=== PATIENT | female | born 1950 | race Caucasian/White ===

== ENCOUNTER 2021-01-05 11:11 | Observation (INO) | payer OTHER, MEDICARE ==
[2021-01-05 11:38] LABS: Absolute Lymphocytes (CBC) 1.1 K/uL (0.7-4.9); Basophils % 0.5 % (0-1.3); Hematocrit 44.4 % (36.0-45.0); Lymphocytes % 14.7 % (15.3-44.8); MPV 9.2 fL (7.6-11.3); RBC Red Blood Cell Count 5.13 M/uL (3.86-4.86)
[2021-01-05] MEDS ORDERED: NA CHLORIDE 0.9% 500 ML ONE (11:44)
[2021-01-05] MEDS ORDERED: METOPROLOL TARTRATE 5 MG/5 ML INJ IV ONE (11:44)
[2021-01-05] MEDS ORDERED: METOPROLOL TAR 50 MG TAB ONE (11:44)
[2021-01-05 11:45] LABS: Protime INR 0.88
[2021-01-05] MEDS ORDERED: NA CHLORIDE 0.9% 1,000 ML ONE (11:45)
[2021-01-05] MEDS ORDERED: FAMOTIDINE 20 MG/2 ML VIAL IV ONE (11:45)
--- NOTE | 2021-01-05 12:04 | RAD REPORT ---
EXAM DESCRIPTION: CT - Head Brain Wo Cont - 01/05/2021 11:51 am CLINICAL HISTORY: Dizziness COMPARISON: None TECHNIQUE: Computed axial tomography of the head was obtained. IV contrast was not requested. All CT scans are performed using dose optimization technique as appropriate and may include automated exposure control or mA/KV adjustment according to patient size. FINDINGS: An intracranial bleed is not seen . The ventricles are normal in caliber. No extra-axial fluid collection is noted. Small low-density area right internal capsule. Fluid within the sinuses/ mastoids is not seen. IMPRESSION: Small low-density area right internal capsule. It is uncertain if it is real. It may be a lacunar infarct of indeterminate age. If clinically indicated further evaluation with MRI could be obtained
[2021-01-05 12:05] LABS: ALT/SGPT 22 U/L (12-78); AST/SGOT 14 U/L (15-37); Albumin 3.4 g/dL (3.4-5.0); Alkaline Phosphatase 136 U/L (45-117); BUN Blood Urea Nitrogen 13 mg/dL (7-18); Bicarbonate 23 mmol/L (21-32); Bilirubin Direct < 0.1 mg/dL (0-0.2); Bilirubin Total 0.4 mg/dL (0.2-1.0); Glucose Level 378 mg/dL (74-106); Magnesium 1.8 mg/dL (1.8-2.4); NT PRO-BNP 400 pg/mL (<125); Potassium 4.5 mmol/L (3.5-5.1); Protein, Total 7.1 g/dL (6.4-8.2); Sodium Level 135 mmol/L (136-145); Troponin (Emerg Dept Use Only) < 0.02 ng/mL (0.0-0.045)
--- NOTE | 2021-01-05 12:42 | RAD REPORT ---
EXAM DESCRIPTION: [place] Single View01/05/2021 12:11 pm CLINICAL HISTORY: Chest pain COMPARISON: none FINDINGS: The lungs appear clear of acute infiltrate. The heart is normal size. Aorta is tortuous/e ctatic IMPRESSION: No acute abnormalities displayed
--- NOTE | 2021-01-05 12:44 | EDPHYS ---
Physician Documentation [facility] Name: Keesha Shah Age: 70 yrs Sex: Female : 1950 Arrival Date: 01/05/2021 Time: 11:12 Bed 8 Private MD: POLINA Physician Cheikh Gu HPI: 01/05 12:36 This 70 yrs old Female presents to ER via EMS with complaints of fat heart david rate, webster and numbness to face and jaw. 12:36 The patient complains of pain to the top of head and forehead. The patient describes david the headache as constant. Onset: The symptoms/episode began/occurred this morning. The patient presents with a history of irregular heart beat, heart racing. Context: The symptoms occur with light activity. Onset: The symptoms/episode began/occurred just prior to arrival, this morning. Duration: The patient or guardian reports a single episode, that is still ongoing. Modifying factors: The symptoms are aggravated by nothing. The symptoms are alleviated by nothing. Historical: - Allergies: 11:24 No Known Allergies; ca1 - Home Meds: 11:24 Aspirin Oral [Active]; Aleve Oral [Active]; vitamins [Active]; ca1 - PMHx: 11:24 Diabetes - NIDDM; Hypertension; ca1 - PSHx: 11:24 elbow sx; ca1 - Immunization history:: Adult Immunizations not up to date, Client reports having NOT received the Covid vaccine. Pneumococcal vaccine is not up to date, Flu vaccine is not up to date. - Social history:: Smoking status: Patient denies any tobacco usage or history of. - Family history:: not pertinent. ROS: 12:36 Constitutional: Negative for fever, chills, and weight loss, Eyes: Negative for injury, david pain, redness, and discharge, ENT: Negative for injury, pain, and discharge, Neck: Negative for injury, pain, and swelling, Respiratory: Negative for shortness of breath, cough, wheezing, and pleuritic chest pain, Abdomen/GI: Negative for abdominal pain, nausea, vomiting, diarrhea, and constipation, Back: Negative for injury and pain, : Negative for injury, bleeding, discharge, and swelling, MS/Extremity: Negative for injury and deformity, Skin: Negative for injury, rash, and discoloration, Neuro: Negative for headache, weakness, numbness, tingling, and seizure, Psych: Negative for depression, anxiety, suicide ideation, homicidal ideation, and hallucinations, Allergy/Immunology: Negative for hives, rash, and allergies, Endocrine: Negative for neck swelling, polydipsia, polyuria, polyphagia, and marked weight changes, Hematologic/Lymphatic: Negative for swollen nodes, abnormal bleeding, and unusual bruising. 12:36 Cardiovascular: Positive for chest pain, palpitations. Exam: 12:36 Constitutional: This is a well developed, well nourished patient who is awake, alert, david and in no acute distress. Head/Face: Normocephalic, atraumatic. Eyes: Pupils equal round and reactive to light, extra-ocular motions intact. Lids and lashes normal. Conjunctiva and sclera are non-icteric and not injected. Cornea within normal limits. Periorbital areas with no swelling, redness, or edema. ENT: Nares patent. No nasal discharge, no septal abnormalities noted. Tympanic membranes are normal and external auditory canals are clear. Oropharynx with no redness, swelling, or masses, exudates, or evidence of obstruction, uvula midline. Mucous membranes moist. Neck: Trachea midline, no thyromegaly or masses palpated, and no cervical lymphadenopathy. Supple, full range of motion without nuchal rigidity, or vertebral point tenderness. No Meningismus. Chest/axilla: Normal chest wall appearance and motion. Nontender with no deformity. No lesions are appreciated. Respiratory: Lungs have equal breath sounds bilaterally, clear to auscultation and percussion. No rales, rhonchi or wheezes noted. No increased work of breathing, no retractions or nasal flaring. Abdomen/GI: Soft, non-tender, with normal bowel sounds. No distension or tympany. No guarding or rebound. No evidence of tenderness throughout. Back: No spinal tenderness. No costovertebral tenderness. Full range of motion. Female : Normal external genitalia. Skin: Warm, dry with normal turgor. Normal color with no rashes, no lesions, and no evidence of cellulitis. MS/ Extremity: Pulses equal, no cyanosis. Neurovascular intact. Full, normal range of motion. Neuro: Awake and alert, GCS 15, oriented to person, place, time, and situation. Cranial nerves II-XII grossly intact. Motor strength 5/5 in all extremities. Sensory grossly intact. Cerebellar exam normal. Normal gait. Psych: Awake, alert, with orientation to person, place and time. Behavior, mood, and affect are within normal limits. 12:36 Cardiovascular: Rate: tachycardic, actual rate is 150 bpm, Rhythm: irregularly irregular, Pulses: Pulses are 4+ in bilateral radial, brachial, femoral, popliteal, posterior tibial and and dorsalis pedis arteries.. Heart sounds: normal, Edema: is not appreciated, JVD: is not appreciated. 12:36 ECG was reviewed by the Attending Physician. 12:40 ECG was reviewed by the Attending Physician. [facility] Vital Signs: 11:22 BP 143 / 103; Pulse 165; Resp 18; Temp 98.2(O); Pulse Ox 98% on R/A; ca1 11:48 BP 100 / 65; Pulse 143; Resp 18 S; Pulse Ox 99% on R/A; ca1 11:56 Weight 85.73 kg (R); Height 5 ft. 4 in. (162.56 cm) (R); ca1 12:05 BP 101 / 68; Pulse 62; Resp 20 S; Pulse Ox 98% on R/A; ca1 12:26 BP 105 / 62; Pulse 61; Resp 22; Pulse Ox 98% on R/A; ca1 13:00 BP 120 / 65; Pulse 60; Resp 20 S; Pulse Ox 98% on R/A; ca1 14:04 BP 106 / 55; Pulse 58; Resp 18 S; Pulse Ox 98% on R/A; ca1 15:00 BP 100 / 60; Pulse 65; Resp 18 S; Pulse Ox 100% on R/A; ca1 16:00 BP 124 / 63; Pulse 66; Resp 18 S; Pulse Ox 99% on R/A; ca1 11:56 Body Mass Index 32.44 (85.73 kg, 162.56 cm) ca1 [place] Coma Score: 12:40 Eye Response: spontaneous(4). Verbal Response: oriented(5). Motor Response: obeys david commands(6). Total: 15. MDM: 11:26 Patient medically screened. [facility] 12:40 Differential diagnosis: cerebral vascular accident, arrythmia, dehydration, DKA, david hyperthyroidism, migraine, tension headache, vasomotor headache. Differential diagnosis: cardiac arrhythmia, CVA, generalized weakness, idiopathic dizziness, near-syncope, TIA. Data reviewed: vital signs, nurses notes, lab test result(s), EKG, radiologic studies, CT scan, plain films. Data interpreted: residential monitor: rate is 150 beats/min, rhythm is atrial fibrillation, Pulse oximetry: on room air is 98 %. Test interpretation: by ED physician or midlevel provider: ECG, plain radiologic studies. Counseling: I had a detailed discussion with the patient and/or guardian regarding: the historical points, exam findings, and any diagnostic results supporting the discharge/admit diagnosis, lab results, radiology results, the need for further work-up and treatment in the hospital. 01/05 11:25 Order name: Basic Metabolic Panel [facility] 01/05 11:25 Order name: CBC with Diff [facility] 01/05 11:25 Order name: LFT's [facility] 01/05 11:25 Order name: Magnesium [facility] 01/05 11:25 Order name: NT PRO-BNP [facility] 01/05 11:25 Order name: PT-INR; Complete Time: 12:26 [facility] 01/05 11:25 Order name: Troponin (emerg Dept Use Only) [facility] 01/05 11:25 Order name: TSH; Complete Time: 12:26 [facility] 01/05 11:25 Order name: Urine Culture [facility] 01/05 11:25 Order name: COVID-19 : Document "Date of Symptom Onset" if Symptomatic. [facility] 01/05 11:25 Order name: Basic Metabolic Panel; Complete Time: 12:26 [facility] 01/05 11:25 Order name: CBC with Automated Diff; Complete Time: 12:26 [facility] 01/05 11:26 Order name: Liver (Hepatic) Function; Complete Time: 12:26 [facility] 01/05 11:26 Order name: Magnesium; Complete Time: 12:26 [facility] 01/05 11:25 Order name: XRAY Chest (1 view); Complete Time: 12:44 [facility] 01/05 11:25 Order name: CT Head Brain wo Cont; Complete Time: 12:26 [facility] 01/05 11:26 Order name: NT PRO-BNP; Complete Time: 12:26 [facility] 01/05 11:26 Order name: Troponin (Emerg Dept Use Only); Complete Time: 12:26 [facility] 01/05 11:35 Order name: Glucose, Ancillary Testing; Complete Time: 12: [facility] 01/05 12:17 Order name: Echo with Doppler EDMS 01/05 12:17 Order name: Thyroid Stimulating Hormone [facility] 01/05 12:26 Order name: Lipid Profile [facility] 01/05 12:26 Order name: Lipid Profile; Complete Time: 15:37 [facility] 01/05 14:13 Order name: SARS-COV-2 RT PCR; Complete Time: 15:37 [facility] 01/05 14:36 Order name: Creatine Phosphokinase; Complete Time: 15:37 [facility] 01/05 14:36 Order name: CKMB Creatine Kinase MB; Complete Time: 15:37 [facility] 01/05 14:36 Order name: Troponin I; Complete Time: 15:37 [facility] 01/05 16:08 Order name: T4 Free [facility] 01/05 11:25 Order name: EKG; Complete Time: 11:26 [facility] 01/05 11:25 Order name: Cardiac monitoring; Complete Time: 12:03 [facility] 01/05 11:25 Order name: EKG - Nurse/Tech; Complete Time: 12:03 [facility] 01/05 11:25 Order name: IV Saline Lock; Complete Time: 12:03 [facility] 01/05 11:25 Order name: Labs collected and sent; Complete Time: 12:03 [facility] 01/05 11:25 Order name: O2 Per Protocol; Complete Time: 12:04 [facility] 01/05 11:25 Order name: O2 Sat Monitoring; Complete Time: 12:04 [facility] 01/05 14:27 Order name: Diet Heart Healthy; Complete Time: 14:28 ca1 EC:36 Rate is 155 beats/min. Rhythm is irregularly irregular. QRS [place] is Normal. GA interval david is normal. QRS interval is normal. QT interval is normal. No Q waves. T waves are Normal. No ST changes noted. Clinical impression: Atrial Fibrillation. Interpreted by me. Reviewed by me. 12:40 Rate is 61 beats/min. Rhythm is regular. QRS [place] is Normal. GA interval is normal. QRS david interval is normal. QT interval is normal. No Q waves. T waves are Normal. No ST changes noted. Clinical impression: Normal ECG and No evidence of ischemia. Interpreted by me. Reviewed by me. Administered Medications: 11:25 Drug: NS 0.9% 500 ml Route: IV; Rate: bolus; Site: right antecubital; ca1 12:30 Follow up: Response: No adverse reaction; IV Status: Completed infusion; IV Intake: ca1 500ml 11:27 Drug: Lopressor (metoprolol TARTRATE) 50 mg Route: PO; ca1 13:23 Follow up: Response: No adverse reaction; Cardiac rhythm changed ca1 11:30 Drug: Lopressor (metoprolol) 5 mg Route: IVP; Site: right antecubital; ca1 11:35 Follow up: Response: No adverse reaction; Cardiac rhythm changed; Cardiac rhythm is ca1 unchanged 11:33 Drug: Pepcid (famotidine) 20 mg Route: IVP; Site: right antecubital; ca1 12:30 Follow up: Response: No adverse reaction ca1 11:35 Drug: Lopressor (metoprolol) 5 mg Route: IVP; Site: right antecubital; ca1 11:45 Follow up: Response: No adverse reaction; Cardiac rhythm changed ca1 12:29 Drug: NS 0.9% 1000 ml Route: IV; Rate: 125 ml/hr; Site: right antecubital; ca1 13:23 Follow up: Response: No adverse reaction; IV Status: Infusion continued upon admission ca1 12:30 Not Given (Hemodynamic Parameters; Cardiac rhythm changed to NSR): Lopressor ca1 (metoprolol) 5 mg IVP once; Hold for SBP <100 or HR <60. 12:30 Drug: foLIC Acid 1 mg Route: IVPB; Site: right antecubital; ca1 13:25 Follow up: Response: No adverse reaction; IV Status: Completed infusion ca1 12:33 Drug: LanTUS (insulin glargine) 30 units Route: Sub-Q; Site: right lower abdomen; ca1 16:08 Follow up: Response: No adverse reaction; Blood sugar is lowered ca1 12:35 Drug: Insulin Regular Human 6 units {Co-Signature: [email or web address] (William Diaz RN).} Route: IVP; ca1 Site: right antecubital; 16:09 Follow up: Response: No adverse reaction; Blood sugar is lowered ca1 12:40 Drug: Aspirin 162 mg Route: PO; ca1 13:24 Follow up: Response: No adverse reaction ca1 12:53 Drug: Lovenox (enoxaparin) 1 mg/kg Route: Sub-Q; Site: left lower abdomen; ca1 13:24 Follow up: Response: No adverse reaction ca1 Disposition: 01/05/21 12:44 Hospitalization ordered by Prince Jhony for Observation. Preliminary diagnosis are Atrial fibrillation and flutter - with RVR, Headache, Type 2 diabetes mellitus - UNCONTROLLED. - Bed requested for Telemetry/MedSurg (observation). - Status is Observation. ca1 - Condition is Stable. - Problem is new. - Symptoms have improved. Signatures: Dispatcher [employer] EDMS Erna Hannah RN RN kl Anderson, Corey, MD MD cha Attema, Lee, HEARING AID DISPENSER-C HEARING AID DISPENSER-Cla1 Arianna Garcia RN RN ca1 William Diaz RN [email or web address] Corrections: (The following items were deleted from the chart) 15:47 12:44 Hospitalization Ordered by Prince Jhony DURÁN for Observation. Preliminary kl diagnosis is Atrial fibrillation and flutter - with RVR; Headache; Type 2 diabetes mellitus - UNCONTROLLED. Bed requested for Telemetry/MedSurg (observation). Status is Observation. Condition is Stable. Problem is new. Symptoms have improved. [facility] 16:15 15:47 01/05/2021 12:44 Hospitalization Ordered by Prince Jhony DUÁRN for Observation. ca1 Preliminary diagnosis is Atrial fibrillation and flutter - with RVR; Headache; Type 2 diabetes mellitus - UNCONTROLLED. Bed requested for Telemetry/MedSurg (observation). Status is Observation. Condition is Stable. Problem is new. Symptoms have improved. kl
--- NOTE | 2021-01-05 12:44 | ER ---
Nurse's Notes [facility] Name: Keesha Shah Age: 70 yrs Sex: Female : 1950 Arrival Date: 01/05/2021 Time: 11:12 Bed 8 Private MD: Diagnosis: Atrial fibrillation and flutter-with RVR;Headache;Type 2 diabetes mellitus-UNCONTROLLED Presentation: 01/05 11:22 Coronavirus screen: Client denies travel out of the [place] in the last 14 days. At this ca1 time, the client does not indicate any symptoms associated with coronavirus-19. Ebola Screen: Patient negative for fever greater than or equal to 101.5 degrees Fahrenheit, and additional compatible Ebola Virus Disease symptoms Patient denies exposure to infectious person. Patient denies travel to an Ebola-affected area in the 21 days before illness onset. No symptoms or risks identified at this time. Initial Sepsis Screen: Does the patient meet any 2 criteria? No. Patient's initial sepsis screen is negative. Does the patient have a suspected source of infection? No. Patient's initial sepsis screen is negative. Risk Assessment: Do you want to hurt yourself or someone else? Patient reports no desire to harm self or others. Onset of symptoms was January 05, 2021 at 08:00. 11:22 Acuity: NICK 2 ca1 11:22 Method Of Arrival: EMS: [facility] ca1 11:22 Chief complaint: Chief complaint: EMS states: 0800 today, felt started racing. C/O ca1 numbness of arms and headache. Reports N/V. Reports previous episode of heart racing years ago but undiagnosed. Upon arrival on scene, Pt HR at 160, A-fib RVR. HR increased to 190 for 10 minutes. Diltiazem 10MG given IV. HR at 150 - 160s at this time. IV start G20 RAC. Takes Aspirin, Aleve, Vitamins. Denies chest pain at this time. Triage Assessment: 11:22 General: Appears in no apparent distress. comfortable, Behavior is calm, cooperative, ca1 appropriate for age. Pain: Complains of pain in scalp. Pain:. EENT: No signs and/or symptoms were reported regarding the EENT system. Neuro: Level of Consciousness is awake, alert, obeys commands, Oriented to person, place, time, situation. Cardiovascular: Heart tones S1 S2 present Capillary refill < 3 seconds Patient's skin is warm and dry. Rhythm is atrial fibrillation with rapid ventricular response. Respiratory: Airway is patent Respiratory effort is even, unlabored, Respiratory pattern is regular, symmetrical, Breath sounds are clear bilaterally. GI: Abdomen is round non-distended, Bowel sounds present X 4 quads. Reports nausea, vomiting. : No signs and/or symptoms were reported regarding the genitourinary system. : No signs and/or symptoms were reported regarding the genitourinary system. Derm: Skin is intact, is healthy with good turgor, Skin is pink, warm \T\ dry. Musculoskeletal: Circulation, motion, and sensation intact. Capillary refill < 3 seconds. Historical: - Allergies: 11:24 No Known Allergies; ca1 - Home Meds: 11:24 Aspirin Oral [Active]; Aleve Oral [Active]; vitamins [Active]; ca1 - PMHx: 11:24 Diabetes - NIDDM; Hypertension; ca1 - PSHx: 11:24 elbow sx; ca1 - Immunization history:: Adult Immunizations not up to date, Client reports having NOT received the Covid vaccine. Pneumococcal vaccine is not up to date, Flu vaccine is not up to date. - Social history:: Smoking status: Patient denies any tobacco usage or history of. - Family history:: not pertinent. Screenin:48 Abuse screen: Denies threats or abuse. Denies injuries from another. Nutritional ca1 screening: No deficits noted. Tuberculosis screening: No symptoms or risk factors identified. Fall Risk IV access (20 points). Assessment: 11:51 Reassessment: see triage notes. ca1 11:51 Reassessment: Pt to CT. ca1 12:05 Reassessment: Patient appears in no apparent distress at this time. Patient is alert, ca1 oriented x 3, equal unlabored respirations, skin warm/dry/pink. Cardiovascular: Rhythm is sinus rhythm. 12:26 Reassessment: Patient appears in no apparent distress at this time. Patient and/or ca1 family updated on plan of care and expected duration. Pain level reassessed. Patient is alert, oriented x 3, equal unlabored respirations, skin warm/dry/pink. 13:22 Reassessment: Patient appears in no apparent distress at this time. Patient and/or ca1 family updated on plan of care and expected duration. Pain level reassessed. Patient is alert, oriented x 3, equal unlabored respirations, skin warm/dry/pink. 14:04 Reassessment: Patient appears in no apparent distress at this time. Patient and/or ca1 family updated on plan of care and expected duration. Pain level reassessed. Patient is alert, oriented x 3, equal unlabored respirations, skin warm/dry/pink. 14:50 Reassessment: Dr. Reyes at bedside. 7 15:00 Reassessment: Patient appears in no apparent distress at this time. Patient and/or ca1 family updated on plan of care and expected duration. Pain level reassessed. Patient is alert, oriented x 3, equal unlabored respirations, skin warm/dry/pink. 16:00 Reassessment: Patient appears in no apparent distress at this time. Patient and/or ca1 family updated on plan of care and expected duration. Pain level reassessed. Patient is alert, oriented x 3, equal unlabored respirations, skin warm/dry/pink. Vital Signs: 11:22 BP 143 / 103; Pulse 165; Resp 18; Temp 98.2(O); Pulse Ox 98% on R/A; ca1 11:48 BP 100 / 65; Pulse 143; Resp 18 S; Pulse Ox 99% on R/A; ca1 11:56 Weight 85.73 kg (R); Height 5 ft. 4 in. (162.56 cm) (R); ca1 12:05 BP 101 / 68; Pulse 62; Resp 20 S; Pulse Ox 98% on R/A; ca1 12:26 BP 105 / 62; Pulse 61; Resp 22; Pulse Ox 98% on R/A; ca1 13:00 BP 120 / 65; Pulse 60; Resp 20 S; Pulse Ox 98% on R/A; ca1 14:04 BP 106 / 55; Pulse 58; Resp 18 S; Pulse Ox 98% on R/A; ca1 15:00 BP 100 / 60; Pulse 65; Resp 18 S; Pulse Ox 100% on R/A; ca1 16:00 BP 124 / 63; Pulse 66; Resp 18 S; Pulse Ox 99% on R/A; ca1 11:56 Body Mass Index 32.44 (85.73 kg, 162.56 cm) ca1 Satya Coma Score: 12:40 Eye Response: spontaneous(4). Verbal Response: oriented(5). Motor Response: obeys david commands(6). Total: 15. ED Course: 11:12 Patient arrived in ED. aa5 11:19 Cheikh Gu MD is Attending Physician. david 11:20 Arianna Garcia, RN is Primary Nurse. ca1 11:22 Triage completed. ca1 11:24 Arm band placed on. EKG completed in triage. Results shown to MD. ca1 11:25 Initial lab(s) drawn, by me, sent to lab. aa5 11:25 Maintain EMS IV. Dressing intact. Good blood return noted. Site clean \T\ dry. Gauge \T\ aa 5 site: 20 G to R AC. 11:48 Patient has correct armband on for positive identification. Placed in gown. Bed in low ca1 position. Call light in reach. Side rails up X2. space planner on. Pulse ox on. NIBP on. Warm blanket given. 11:56 CT Head Brain wo Cont In Process Unspecified. EDMS 12:11 XRAY Chest (1 view) In Process Unspecified. EDMS 12:42 Prince Booker MD is Hospitalizing Provider. [facility] 14:08 No provider procedures requiring assistance completed. Patient admitted, IV remains in ca1 place. Administered Medications: 11:25 Drug: NS 0.9% 500 ml Route: IV; Rate: bolus; Site: right antecubital; ca1 12:30 Follow up: Response: No adverse reaction; IV Status: Completed infusion; IV Intake: ca1 500ml 11:27 Drug: Lopressor (metoprolol TARTRATE) 50 mg Route: PO; ca1 13:23 Follow up: Response: No adverse reaction; Cardiac rhythm changed ca1 11:30 Drug: Lopressor (metoprolol) 5 mg Route: IVP; Site: right antecubital; ca1 11:35 Follow up: Response: No adverse reaction; Cardiac rhythm changed; Cardiac rhythm is ca1 unchanged 11:33 Drug: Pepcid (famotidine) 20 mg Route: IVP; Site: right antecubital; ca1 12:30 Follow up: Response: No adverse reaction ca1 11:35 Drug: Lopressor (metoprolol) 5 mg Route: IVP; Site: right antecubital; ca1 11:45 Follow up: Response: No adverse reaction; Cardiac rhythm changed ca1 12:29 Drug: NS 0.9% 1000 ml Route: IV; Rate: 125 ml/hr; Site: right antecubital; ca1 13:23 Follow up: Response: No adverse reaction; IV Status: Infusion continued upon admission ca1 12:30 Not Given (Hemodynamic Parameters; Cardiac rhythm changed to NSR): Lopressor ca1 (metoprolol) 5 mg IVP once; Hold for SBP <100 or HR <60. 12:30 Drug: foLIC Acid 1 mg Route: IVPB; Site: right antecubital; ca1 13:25 Follow up: Response: No adverse reaction; IV Status: Completed infusion ca1 12:33 Drug: LanTUS (insulin glargine) 30 units Route: Sub-Q; Site: right lower abdomen; ca1 16:08 Follow up: Response: No adverse reaction; Blood sugar is lowered ca1 12:35 Drug: Insulin Regular Human 6 units {Co-Signature: [email or web address] (William Diaz RN).} Route: IVP; ca1 Site: right antecubital; 16:09 Follow up: Response: No adverse reaction; Blood sugar is lowered ca1 12:40 Drug: Aspirin 162 mg Route: PO; ca1 13:24 Follow up: Response: No adverse reaction ca1 12:53 Drug: Lovenox (enoxaparin) 1 mg/kg Route: Sub-Q; Site: left lower abdomen; ca1 13:24 Follow up: Response: No adverse reaction ca1 Intake: 12:30 IV: 500ml; Total: 500ml. ca1 Outcome: 12:44 Decision to Hospitalize by Provider. [facility] 16:06 Admitted to Med/surg accompanied by tech, via wheelchair, room 208, with chart, Report ca1 called to ILIANA Stahl 16:06 Condition: stable 16:06 Instructed on the need for admit. 16:15 Patient left the ED. ca1 Signatures: Dispatcher [employer] Cheikh Baca MD MD cha Calderon, Audri RN RN William Cuellar RN RN [email or web address] Arianna Garcia RN RN ca1 William Diaz RN [email or web address]
[2021-01-05] MEDS ORDERED: INSULIN GLARGINE 100 UNITS/ML SQ ONE (12:52)
[2021-01-05] MEDS ORDERED: ASPIRIN 81 MG CHEWABLE TABLET ONE (12:52)
[2021-01-05] MEDS ORDERED: INSULIN -REGULAR HUMAN 50 UNIT/0.5 ML ML ONE (12:53)
[2021-01-05] MEDS ORDERED: ENOXAPARIN 80 MG/0.8 ML SQ ONE (12:53)
[2021-01-05] MEDS ORDERED: FOLIC ACID 5 MG/ML VIAL ONE (12:54)
[2021-01-05] MEDS ORDERED: ACETAMINOPHEN 500 MG TAB PO PRN (13:24)
[2021-01-05] MEDS ORDERED: TRAMADOL HCL 50 MG TAB PO PRN (13:29)
[2021-01-05] MEDS: NA CHLORIDE 0.9% 1,000 ML IV SCH (14:00)
--- NOTE | 2021-01-05 14:05 | P.HP ---
Patient History Date of Service: 01/05/21 Reason for admission: suspected CVA/TIA. History of Present Illness: 70 y o female pt with hx of DM type 2, Hypertension, Hyperlipidemia, who came to the Ed after feeling unwell. she had symptoms of tingling around the mouth and bilateral jaw. no chest pain or sob reported. no feeling of weakness in any limbs. she also did not have double vision or inability to speak or recognize speech. she had a CT of the head done and a small area of indeterminate age lesion was found in the right internal capsule. she also was found to ave rapid A fib which became regular rhythm after a clifton of rate control meds. She was admitted for inpt care after discussing with cardiology. Prior to this episode, she denied any issues with prior chest pain on exertion, sob, fever, chills, rigor, cough, leg swelling. Allergies No Known Allergies Allergy (Unverified 03/31/17 21:38) Home Medications: Aspirin [Ecotrin 81 MG] 81 mg PO DAILY 04/01/17 Canagliflozin [Invokana] 1 tab PO DAILY 04/01/17 Diclofenac Potassium 1 tab PO TID 04/01/17 Glimepiride 1 tab PO DAILY 04/01/17 Losartan Potassium 1 tab PO DAILY 04/01/17 Pregabalin [Lyrica] 75 mg PO DAILY #10 cap 04/01/17 Sitagliptin Phos/Metformin HCl [Janumet 50-1,000 mg Tablet] 1 tab PO BID 04/01/17 Tramadol HCl [Ultram] 50 mg PO Q8HR PRN #3 tablet 04/01/17 dexAMETHasone [Dexamethasone] 1 tab PO DAILY 04/01/17 diazePAM [Diazepam] 2 mg PO QID 04/01/17 - Past Medical/Surgical History Diabetic: Yes -: hypertension -: diabetes-NIDDM -: Osteoarthritis -: elbow surgery with hardware - Family History Father -: Diabetes, Cancer (Prostate) Mother -: Heart disease, Hypertension, Diabetes - Social History Alcohol use: No CD- Drugs: No Caffeine use: No Review of Systems General: Unremarkable Eyes: Unremarkable ENT: Other (jaw tingling and numbness.) Respiratory: Unremarkable Cardiovascular: Palpitations Gastrointestinal: Unremarkable Genitourinary: Unremarkable Musculoskeletal: Unremarkable Integumentary: Unremarkable Neurological: Unremarkable Physical Examination - Physical Exam General: Alert, Oriented x3, Cooperative HEENT: Atraumatic, Normocephalic Neck: Supple Respiratory: Clear to auscultation bilaterally Cardiovascular: Regular rate/rhythm, Normal S1 S2 Gastrointestinal: Soft and benign Musculoskeletal: No swelling Neurological: Normal speech, Normal strength at 5/5 x4 extr, Cranial nerves 3-12 intact - Studies Laboratory Data (last 24 hrs) 01/05/21 11:25: Triglycerides 188 H, Cholesterol 239 H, HDL Cholesterol 60, Cholesterol/HDL Ratio 3.98 01/05/21 11:25: PT 10.1, INR 0.88 01/05/21 11:25: WBC 7.60, Hgb 14.5, Hct 44.4, Plt Count 177 01/05/21 11:25: Sodium 135 L, Potassium 4.5, BUN 13, Creatinine 0.68, Glucose 378 H, Magnesium 1.8, Total Bilirubin 0.4, AST 14 L, ALT 22, Alkaline Phosphatase 136 H Assessment and Plan - Plan 1. CVA/TIA-Her presentation is very concerning. we will complete work up as per neurologist. we will continue aspirin and statin therapy. lipid panel obtained. we will follow closely. 2.Rapid A fib-Rapid a fib noted but this has converted to NSR. we will continue lovenox for anticoagulation pending further review. we will obtain echocardiogram to evaluate for intracardiac clot. Adjudication Specialist to evaluate, Telemetry will be continued and troponin/CKMB will be trended. 3.Hypertension-we will continue her outpt antihypertensive medications and monitor vitals per unit protocol. 4. Hyperlipidemia- we will start atorvastatin at 40mg PO daily pending further review. 5. Diabetes type 2-Her BG is still very much poorly controlled in the 300s. we will obtain HbA1c and start SSI and continue glipizide for glucose control. Carb restricted diet to be continued. Discharge Plan: Home - Advance Directives Does patient have a Living Will: Yes Does patient have a Durable POA for Healthcare: Yes
[2021-01-05 14:14] VITALS: BMI 32.4
[2021-01-05 14:36] LABS: CKMB Creatine Kinase MB 2.4 ng/mL (0.3-3.6); Creatine Phosphokinase 59 U/L (26-192); Troponin I < 0.02 ng/mL (0.0-0.045)
[2021-01-05] MEDS ORDERED: PNEUMOCOCCAL VACCINE 0.5 ML IMVAC ONE (15:00)
[2021-01-05] MEDS: INSULIN -REGULAR HUMAN 50 UNIT/0.5 ML ML SQ SCH ×2 (16:30→21:41)
--- NOTE | 2021-01-05 17:17 | CON ---
Date of Consultation: 01/05/2021 The patient was seen by bedside. She is doing well. No complaints at the present time. History Of Present Illness: This is a 70-year-old female, who presented to the emergency room with p alpitations. She claimed that this started suddenly earlier and did not have any chest pain or short ness of breath, but she started feeling clammy. She tried to take multiple deep breaths, but did not help and she took 2 aspirins without good results, so she presented to the emergency room by calling the ambulance. Ambulance found her to be in AFib with rapid ventricular response. She was given a dose of Cardizem IV and then in the emergency room, she received 2 rounds of beta-cindy and now she is back in sinus rhythm and feels completely normal. Denies having any chest pain or shortness of b reath or any other complaints. Past Medical History: Diabetes and hypertension. Medications: None. Allergies: NO KNOWN DRUG ALLERGIES. Family History: No premature coronary artery disease or cancer. Social History: She does not smoke or drink. Does not use any drugs. Review of Systems: All systems reviewed and they were negative except what is mentioned in the HPI. Physical Examination: Vital Signs: Reviewed. Head and Neck: Pupils are equal, reactive to light. Intact eye movements. No JVD. No cervical lym phadenopathy. Neck: Supple. Thyroid is not enlarged. Lungs: Clear to auscultation bilaterally. No rhonchi, rales, or crackles. No accessory muscle use. Heart: Regular rate and rhythm. No extra sounds. Abdomen: Soft, nontender. Bowel sounds positive. No organomegaly. No masses or hernia. No rigidi ty or rebound. Extremities: No edema, clubbing, or cyanosis. Intact pulses. Skin: No rash noted. Neurologic: Alert, awake, oriented x3. No acute focal deficits appreciated. Investigations: TSH is 1.6. Troponin is less than 0.02. Creatinine 0.68. Hemoglobin is 14.5. INR is 0.88. Assessment And Recommendations: Atrial fibrillation with rapid ventricular response. This is comple tely resolved. Now, she is in sinus rhythm. Recommend starting metoprolol 25 mg by mouth twice a da y and her CHADS-VASc score is 4, so she will need protection for stroke. I recommend to start Eliqui s 5 mg p.o. twice a day and from my standpoint, the patient can be released to follow up with me in t he office within a week postdischarge, again to be placed on metoprolol and Eliquis. Thank you for the consult. GARRETT Voice ID: [id number] Report ID: [id number]
[2021-01-05] MEDS: METOPROLOL TAR 25 MG TAB PO SCH (18:01)
[2021-01-05 20:02] LABS: Urine Appearance CLEAR (Clear); Urine Bilirubin NEGATIVE (Negataive); Urine Blood NEGATIVE (Negative); Urine Color YELLOW (Yellow); Urine Glucose 3+ (Negative); Urine Protein NEGATIVE (Negative); Urine Specific Gravity >=1.030 (1.005-1.030); Urine Urobilinogen 0.2 mg/dL (0.2-1.0); Urine pH 5.5 (5.0-7.0)
[2021-01-05 20:20] LABS: Urine Microscopic Reflex NO UMIC
[2021-01-05] MEDS ORDERED: ATORVASTATIN 40 MG TAB PO SCH (21:00)
[2021-01-05] MEDS ORDERED: ENOXAPARIN 80 MG/0.8 ML SQ SCH (21:00)
[2021-01-05] MEDS: APIXABAN 5 MG TABLET PO SCH (21:41)
[2021-01-06] MEDS: NA CHLORIDE 0.9% 1,000 ML IV SCH (03:43)
[2021-01-06 05:49] LABS: Absolute Lymphocytes (CBC) 2.3 K/uL (0.7-4.9); Basophils % 0.5 % (0-1.3); Hematocrit 36.7 % (36.0-45.0); Lymphocytes % 33.2 % (15.3-44.8); MPV 8.8 fL (7.6-11.3); RBC Red Blood Cell Count 4.27 M/uL (3.86-4.86)
[2021-01-06 06:06] LABS: BUN Blood Urea Nitrogen 16 mg/dL (7-18); Bicarbonate 25 mmol/L (21-32); Creatine Phosphokinase 38 U/L (26-192); Glucose Level 119 mg/dL (74-106); Phosphorus 3.5 mg/dL (2.5-4.9); Potassium 3.6 mmol/L (3.5-5.1); Sodium Level 141 mmol/L (136-145)
[2021-01-06 06:07] LABS: CKMB Creatine Kinase MB 1.4 ng/mL (0.3-3.6); Troponin I 0.03 ng/mL (0.0-0.045)
[2021-01-06] MEDS: METOPROLOL TAR 25 MG TAB PO SCH (06:20)
[2021-01-06] MEDS: INSULIN -REGULAR HUMAN 50 UNIT/0.5 ML ML SQ SCH ×2 (07:30→11:36)
--- NOTE | 2021-01-06 07:54 | EKG ---
Test Date: 2021-01-05 Test Time: 11:22:55 Neurological Surgeon: CYDNEY MEASUREMENT RESULTS: Intervals: Rate: 155 [place]: QRSD: 82 QT: 294 QTc: 472 [place]: P: [place]: QRS: 28 T: 110 INTERPRETIVE STATEMENTS: Atrial fibrillation with rapid ventricular response Marked ST abnormality, possible inferior subendocardial injury Abnormal ECG Compared to ECG 02/10/2010 14:12:15 ST (T wave) deviation now present Sinus rhythm no longer present Electronically Signed On 01-06-21 07:52:09 CDT by Freddy Gruber
[2021-01-06] MEDS ORDERED: GLIMEPIRIDE 2 MG TABLET PO SCH (08:00)
[2021-01-06] MEDS: APIXABAN 5 MG TABLET PO SCH (08:10)
[2021-01-06] MEDS ORDERED: PREGABALIN 150 MG CAP PO SCH (09:00)
[2021-01-06] MEDS ORDERED: HOME MED 1 EA UNK (Losartan Potassium [Losartan Potassium] 100 MG Tablet) PO SCH (09:00)
[2021-01-06] MEDS ORDERED: ASPIRIN EC 81 MG TAB PO SCH (09:00)
[2021-01-06] MEDS ORDERED: LOSARTAN POTASSIUM 50 MG TABLET PO SCH ×2 (09:00)
[2021-01-06] MEDS ORDERED: PREGABALIN 75 MG CAP PO SCH (09:00)
[2021-01-06 10:05] VITALS: O2SAT 98
[2021-01-06 11:54] VITALS: BP 141/65; TEMP 97.6
--- NOTE | 2021-01-07 10:10 | ECHO ---
HEIGHT: 5 ft 4 in WEIGHT: 189 lb 0 oz DATE OF STUDY: 01/06/[address]: Prince Dianna Booker MD 2-DIMENSIONAL: YES M.MODE: YES DOPPLER: YES COLOR FLOW: YES TDS: PORTABLE: DEFINITY: BUBBLE STUDY: DIAGNOSIS: RAPID ATRIAL FIBRILLATION CARDIAC HISTORY: CATHERIZATION: NO SURGERY: NO PROSTHETIC VALVE: NO PACEMAKER: NO MEASUREMENTS (cm) DIASTOLIC (NORMALS) SYSTOLIC (NORMALS) IVSd 1.1 (0.6-1.2) LA Diam 2.8 (1.9-4.0) LVEF 55-60% LVIDd 4.6 (3.5-5.7) LVIDs 2.4 (2.0-3.5) %FS 47% LVPWd 1.2 (0.6-1.2) Ao Diam 2.2 (2.0-3.7) 2 DIMENSIONAL ASSESSMENT: RIGHT ATRIUM: NORMAL LEFT ATRIUM: NORMAL RIGHT VENTRICLE: NORMAL LEFT VENTRICLE: NORMAL TRICUSPID VALVE: NORMAL MITRAL VALVE: NORMAL PULMONIC VALVE: NORMAL AORTIC VALVE: CALCIFIED, NO AORTIC STENSOIS PERICARDIAL EFFUSION: NONE AORTIC ROOT: NORMAL LEFT VENTRICULAR WALL MOTION: NORMAL DOPPLER/COLOR FLOW: NORMAL COMMENTS: NORMAL LEFT VENTRICULAR EJECTION FRACTION 55-60%. NORMAL WALL MOTION. AORTIC VALVE IS CALCIFIED, NO AORTIC STENOSIS. TECHNOLOGIST: JAQUELIN LLOYD
--- NOTE | 2021-01-27 02:08 | P.DS ---
Discharge Date: 01/06/21 Disposition: ROUTINE DISCHARGE Discharge Condition: GOOD Reason for Admission: suspected CVA/TIA. Consultations: Cardiology Brief History of Present Illness: Patient is a 70 y o female pt with hx of DM type 2, Hypertension, Hyperlipidemia, who came to the Ed after feeling unwell. she had symptoms of tingling around the mouth and bilateral jaw. no chest pain or sob reported. no feeling of weakness in any limbs. she also did not have double vision or inability to speak or recognize speech. she had a CT of the head done and a small area of indeterminate age lesion was found in the right internal capsule. she also was found to ave rapid A fib which became regular rhythm after a clifton of rate control meds. She was admitted for inpt care after discussing with cardiology. Prior to this episode, she denied any issues with prior chest pain on exertion, sob, fever, chills, rigor, cough, leg swelling. Hospital Course: Patient was found have 8 fibrillation with rapid ventricular response. Patient was given Lopressor and Eliquis to decrease risk of stroke. Patient's rate has been controlled. Patient clinically is appearing to do much better. At this time, patient is stable for discharge home. Vital Signs/Physical Exam: Temp Pulse Resp BP Pulse Ox 97.6 F 61 18 141/65 H 98 01/06/21 11:54 01/06/21 11:54 01/06/21 11:54 01/06/21 11:54 01/06/21 11:54 General: Alert, In no apparent distress, Oriented x3 Laboratory Data at Discharge: WBC 6.90 K/uL (4.3-10.9) 01/06/21 05:12 Hgb 12.3 g/dL (12.0-15.0) 01/06/21 05:12 Hct 36.7 % (36.0-45.0) D 01/06/21 05:12 Plt Count 169 K/uL (152-406) 01/06/21 05:12 PT 10.1 SECONDS (9.5-12.5) 01/05/21 11:25 INR 0.88 01/05/21 11:25 Sodium 141 mmol/L (136-145) 01/06/21 05:12 Potassium 3.6 mmol/L (3.5-5.1) 01/06/21 05:12 BUN 16 mg/dL (7-18) 01/06/21 05:12 Creatinine 0.54 mg/dL (0.55-1.3) L 01/06/21 05:12 Glucose 119 mg/dL (74-106) H 01/06/21 05:12 Phosphorus 3.5 mg/dL (2.5-4.9) 01/06/21 05:12 Magnesium 2.0 mg/dL (1.8-2.4) 01/06/21 05:12 Total Bilirubin 0.4 mg/dL (0.2-1.0) 01/05/21 11:25 AST 14 U/L (15-37) L 01/05/21 11:25 ALT 22 U/L (12-78) 01/05/21 11:25 Alkaline Phosphatase 136 U/L (45-117) H 01/05/21 11:25 Troponin I 0.03 ng/mL (0.0-0.045) 01/06/21 05:12 Triglycerides 188 mg/dL (<150) H 01/05/21 11:25 Cholesterol 239 mg/dL (<200) H 01/05/21 11:25 HDL Cholesterol 60 mg/dL (40-60) 01/05/21 11:25 Cholesterol/HDL Ratio 3.98 01/05/21 11:25 Home Medications: Aspirin [Ecotrin 81 MG] 81 mg PO DAILY 04/01/17 Apixaban [Eliquis] 5 mg PO BID #60 tablet 01/06/21 Atorvastatin Calcium [Lipitor] 40 mg PO BEDTIME #30 tab 01/06/21 Metformin ER [Glucophage ER*] 500 mg PO DAILY #30 tab.sa 01/06/21 Metoprolol Tartrate [Lopressor*] 12.5 mg PO BID 6AM 6PM #30 tab 01/06/21 Pregabalin [Lyrica] 75 mg PO BID #60 cap 01/06/21 New Medications: Apixaban [Eliquis] 5 mg PO BID #60 tablet Metformin ER [Glucophage ER*] 500 mg PO DAILY #30 tab.sa Atorvastatin Calcium [Lipitor] 40 mg PO BEDTIME #30 tab Metoprolol Tartrate [Lopressor*] 12.5 mg PO BID 6AM 6PM #30 tab Pregabalin [Lyrica] 75 mg PO BID #60 cap Physician Discharge Instructions: OK TO DC IV AND DC HOME FOLLOW-UP WITH PRIMARY CARE PROVIDER IN 1-2 WEEKS FOLLOW-UP WITH CARDIOLOGY IN 1-2 WEEKS RETURN TO THE ER IF symptoms worsen CALL or TEXT DR. DESIR AT [phone] IF ANY QUESTIONS REGARDING HOSPITAL STAY. PLEASE CALL THE FLOOR AT [phone] IF ANY MEDICATION OR NURSING QUESTIONS. Diet: AHA Activity: Fall precautions Followup: Freddy Gruber MD [ACTIVE - CAN ADMIT] - 1-2 Weeks (Call for appointment) NONE,NONE [Primary Care Provider] - 1-2 Weeks (Call for appointment) Time spent managing pt's care (in minutes): 35
== END 2021-01-06 13:42 | disposition home or self-care (01) ==
LOC: ER 11:11 → ERHOLD 12:15 → 2ND 16:07
PROVIDERS: ADMIT Internal Medicine Nephrology; ATTEND Hospitalist
DX: I63.9 Cerebral infarction, unspecified (principal); I48.91 Unspecified atrial fibrillation; I10 Essential (primary) hypertension; E78.5 Hyperlipidemia, unspecified; E11.65 Type 2 diabetes mellitus with hyperglycemia; M19.90 Unspecified osteoarthritis, unspecified site; Z20.822 Contact with and (suspected) exposure to COVID-19; R94.31 Abnormal electrocardiogram [ECG] [EKG]
CPT/HCPCS: 96365; 96361; 93005 ×2; 93306; 87088; 85025 ×2; 87086; 80048 ×2; 36415 ×2; 83735 ×2; 82550 ×2; 84100; 85610; 80061; 82947 ×5; 80076; 84443; 81003; 84484 ×3; 82553 ×2; 84439; 83880; 70450; 71045; 97161; 96375; 96372; 99285; U0003; J7040; J7030 ×2; G0378 ×3; 87077; 87186; J1815

== ENCOUNTER 2021-02-24 06:41 | Day surgery (SDC) | payer OTHER, MEDICARE ==
[2021-02-21 13:41] LABS: Absolute Lymphocytes (CBC) 1.5 K/uL (0.7-4.9); Basophils % 0.6 % (0-1.3); Hematocrit 38.4 % (36.0-45.0); Lymphocytes % 24.1 % (15.3-44.8); MPV 9.2 fL (7.6-11.3); Protime INR 1.17; RBC Red Blood Cell Count 4.38 M/uL (3.86-4.86)
[2021-02-24] MEDS ORDERED: HEPA 1000U/500MLS 1,000 UNIT/500 ML BAG IV ONE (07:01)
[2021-02-24] MEDS ORDERED: LIDOCAINE 1% 20 ML MDV ONE (07:01)
[2021-02-24] MEDS ORDERED: NA CHLORIDE 0.9% 500 ML ONE (07:05)
[2021-02-24] MEDS ORDERED: ATROPINE SULF 1 MG/10 ML SYR IV ONE (07:28)
[2021-02-24] MEDS ORDERED: FENTANYL CITR 100 MCG/2 ML ONE (07:28)
[2021-02-24] MEDS ORDERED: MIDAZOLAM HCL 2 MG/2 ML INJ ONE ×2 (07:28→07:41)
[2021-02-24] MEDS ORDERED: NA CHLORIDE 0.9% 0 ML ONE (07:28)
[2021-02-24] MEDS ORDERED: FLUMAZENIL 0.1 MG/ML (5 mL VIAL) IV ONE (07:44)
[2021-02-24] MEDS ORDERED: GLUCAGON 1 MG/VIAL IM PRN (08:57)
[2021-02-24] MEDS ORDERED: D50W 25 GM/50 ML SYRINGE IV PRN (08:57)
[2021-02-24] MEDS ORDERED: INSULIN -REGULAR HUMAN 50 UNIT/0.5 ML ML SQ ONE (08:58)
[2021-02-24] MEDS ORDERED: INSULIN -REGULAR HUMAN 50 UNIT/0.5 ML ML ONE (09:22)
[2021-02-24 10:23] VITALS: BP 124/64; TEMP 97; O2SAT 98
--- NOTE | 2021-02-24 13:09 | OP ---
Surgeon: Freddy Gruber MD Inspector Welded Parts: Mr. Diaz Miller. Angiography in the groin was normal. Angio-Seal was used to close the case. The patient will be at bedrest for 2 hours in recovery and then go home after that, and I will see her in the office in 2 we eks. Procedure: The patient admitted to the cath lab manager on 02/24/2021, underwent a left heart catheterizatio n with selective coronary arteriogram. Indication: Hypertension, dyslipidemia, abnormal stress test and atypical chest pain. Procedure In Detail: The patient was prepped and draped in the routine sterile fashion. She was giv en initially Versed and fentanyl for sedation, but she became very hypoxic that the Versed was revers ed with midazolam. A 6-Georgian sheath introduced in the right common femoral artery successfully usin g the Seldinger technique and 10 mL of Xylocaine. Chuck catheter left and right were used to cannu late the left main and the right main respectively. The RCA was dominant and had diffuse plaquing th roughout, but no focal stenosis. The left main was normal. Circumflex was very tortuous with diffus e plaquing. The LAD also had tortuosity with diffuse plaquing and a 40% to 50% proximal LAD stenosis . There were no complications. Blood Loss: 5 mL. Final Diagnosis: Moderate coronary artery disease. Plan: To continue medical therapy. I will increase her statin to 80 mg daily and Lipitor. She will resume her Eliquis tomorrow. Anesthesia: Total conscious sedation 45 minutes. ROSALIA/MARIL Voice ID: [id number] Report ID: [id number]
== END 2021-02-24 10:15 | disposition home or self-care (01) ==
LOC: CCL 06:41
DX: I25.10 Atherosclerotic heart disease of native coronary artery without angina pectoris (principal); I48.0 Paroxysmal atrial fibrillation; I10 Essential (primary) hypertension; E78.2 Mixed hyperlipidemia; E11.9 Type 2 diabetes mellitus without complications; Z20.822 Contact with and (suspected) exposure to COVID-19; Z82.49 Family history of ischemic heart disease and other diseases of the circulatory system
CPT/HCPCS: 93005; 85025; 80048; 36415; 85610; 82947 ×3; 85730; 93454; U0003; C1893; C1760; J2250 ×2; J3010; J7040; J1644; J0583